=== PATIENT | female | born 1985 | race African-American/Black ===

== ENCOUNTER 2025-01-24 09:02 | Emergency (ER) | payer SELFPAY ==
[~2025-01-24] VITALS: Ht 167.6 cm; Wt 56.0 kg
[2025-01-24 09:12] VITALS: O2SAT 99
[2025-01-24 09:52] LABS: BASOPHILS % 0.8 % (0.0-2.0); EOSINOPHILS % 2.1 % (0.0-5.0); HEMATOCRIT. 38.8 % (36.0-48.0); HEMOGLOBIN. 12.6 g/dL (12.0-16.0); LYMPHOCYTES % 33.8 % (20.0-50.0); MEAN PLATELET VOLUME 8.3 fl (7.4-10.4); MONOCYTES % 10.3 % (2.0-8.0); NEUTROPHILS % 53.0 % (40.0-76.0); PLATELET 242 x1000/uL (130-400); RED BLOOD CELL COUNT 4.26 mill/uL (4.2-5.4); RED CELL DISTRIBUTION WIDTH 14.4 % (11.6-14.6)
[2025-01-24] MEDS: HALOPERIDOL LACTATE 5MG/ML VIAL IM ONE (10:08)
[2025-01-24] MEDS: LORAZEPAM 2MG/ML UD SYRINGE IM SCH (10:09)
[2025-01-24] MEDS: DIPHENHYDRAMINE 50MG/ML VIAL IM ONE (10:09)
[2025-01-24 10:12] LABS: CREATININE 0.7 mg/dL (0.6-1.0)
[2025-01-24 10:13] LABS: ETHANOL BLOOD < 10 mg/dL (<10); UREA NITROGEN BLOOD 12 mg/dL (9-23)
[2025-01-24 10:17] LABS: HCG SCREEN NEGATIVE
[2025-01-24 10:35] LABS: TROPONIN I HIGH SENSITIVITY < 4 ng/L (3.0-34)
[2025-01-25 04:28] VITALS: BP 99/61; PULSE 77; RESP 15; TEMP 36.8; O2SAT 100
== END 2025-01-25 12:24 | disposition home or self-care (01) ==
LOC: ER 09:02 → EDBD 09:02 → ER 01-25 12:24
DX: R46.1 Bizarre personal appearance (principal); Z20.822 Contact with and (suspected) exposure to COVID-19; Z79.899 Other long term (current) drug therapy
CPT/HCPCS: 80048; 80307; 80329; 80320; 84703; 85025; 84484; 36415; 71045; 93005; 96372; 99285; 87426; J1200; J1630; J2060; Z7610 ×2; G0480